=== PATIENT | female | born 1985 | race American Indian/Alaskan Native ===

== ENCOUNTER 2020-02-23 18:07 | Emergency (ER) | payer OTHER ==
[2020-02-23 18:57] LABS: Basophils % (Auto) 0.6 % (0.0-1.8); Eosinophils # (Auto) 0.1 K/mm3 (0.0-0.4); Eosinophils % (Auto) 1.3 % (0.0-4.3); Hematocrit 36.9 % (30.3-42.9); Hemoglobin 12.8 gm/dl (10.1-14.3); Lymphocytes # (Auto) 1.2 K/mm3 (1.2-5.4); Lymphocytes % (Auto) 18.6 % (13.4-35.0); Mean Corpuscular HGB Conc 35 % (30-34); Mean Corpuscular Volume 98 fl (79-97); Monocytes # (Auto) 0.4 K/mm3 (0.0-0.8); Monocytes % (Auto) 6.3 % (0.0-7.3); Platelet Count 196 K/mm3 (140-440); Red Blood Count 3.76 M/mm3 (3.65-5.03); Red Cell Distribution Width 13.4 % (13.2-15.2)
[2020-02-23 19:40] VITALS: BP 108/73
[2020-02-23 20:09] LABS: Alanine Aminotransferase 21 units/L (7-56); Albumin 3.7 g/dL (3.9-5); BUN/Creatinine Ratio 13; Blood Urea Nitrogen 8 mg/dL (7-17); Calcium 9.5 mg/dL (8.4-10.2); Hemolysis Index 18
[2020-02-23 22:28] LABS: Bacteria,Urine 2+ /HPF (Negative); Bilirubin,Urine NEG (Negative); Blood,Urine NEG (Negative); Color,Urine Yellow (Yellow); Mucus,Urine FEW /HPF; Protein,Urine <15 mg/dL mg/dL (Negative); Urobilinogen,Urine < 2.0 mg/dL (<2.0)
--- NOTE | 2020-02-23 23:30 | Ultrasound Report ---
EXAMINATION: Obstetrical Ultrasound INDICATION: Vaginal bleeding and pain COMPARISON: None FINDINGS: There is a single, living intrauterine . [place]-rump length = 8.5 cm = 14 weeks, 3 day(s). heart rate is 161 beats per minute. There is no free pelvic fluid. IMPRESSION: 1. Single living intrauterine with details as above. Signer Name: Pippa Daniels MD Signed: 02/23/2020 11:25 PM Workstation Name: [id number]
--- NOTE | 2020-02-23 23:30 | Ultrasound Report ---
EXAMINATION: Obstetrical Ultrasound INDICATION: Vaginal bleeding and pain COMPARISON: None FINDINGS: There is a single, living intrauterine . [place]-rump length = 8.5 cm = 14 weeks, 3 day(s). heart rate is 161 beats per minute. There is no free pelvic fluid. IMPRESSION: 1. Single living intrauterine with details as above. Signer Name: Pippa Daniels MD Signed: 02/23/2020 11:25 PM Workstation Name: [id number]
[2020-02-24] MEDS ORDERED: ACETAMINOPHEN 325 MG/10.15 ML ORAL LIQD UNIT DOSE PO ONE
[2020-02-24] MEDS ORDERED: ACETAMINOPHEN W/CODEINE 300-30 MG TAB PO ONE
[2020-02-24] MEDS ORDERED: METOCLOPRAMIDE 10 MG TAB PO ONE
--- NOTE | 2020-02-24 00:11 | Emergency Department Report ---
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 Patient states her headache is in the frontal portion and worsens with movement. She reports she has tried Tylenol 1000 mg multiple times without relief of her headache. She denies any history of migraines, vision changes, numbness/tingling/weakness of the limbs, head trauma, confusion, memory loss, or difficulty with speech/ambulation. She does report mild lower abdominal cramping that has now resolved. She is A1. She is currently following with an DIRECTOR IT per patient. Patient also denies any urinary symptoms, vaginal discharge/dys pareunia, nausea/vomiting, stool changes, or fever/chills/sweats. - Related Data Previous Rx's Medication Instructions Recorded Last Taken Type Acetaminophen/Codeine [Tylenol 1 tab PO ONCE PRN #3 tablet 02/24/20 Unknown Rx /Codeine # 3 tab] Metoclopramide [Reglan TAB] 10 mg PO TID PRN #6 tablet 02/24/20 Unknown Rx diphenhydrAMINE [Benadryl CAP] 25 mg PO TID PRN #6 capsule 02/24/20 Unknown Rx Allergies Allergy/AdvReac Type Severity Reaction Status Date / Time metronidazole [From Flagyl] AdvReac Angioedema Verified 02/23/20 18:30 ED Review of Systems ROS: Stated complaint: 14 WKS /3DAYS SPOTTING Other details as noted in HPI Constitutional: denies: chills, diaphoresis, fever, malaise, weakness Eyes: denies: vision change ENT: denies: throat pain Respiratory: denies: cough, shortness of breath Cardiovascular: denies: chest pain Endocrine: denies: excessive sweating Gastrointestinal: as per HPI. denies: nausea, vomiting Genitourinary: denies: urgency, dysuria, frequency, hematuria, discharge, dyspareunia Musculoskeletal: denies: back pain, joint swelling Skin: denies: lesions, change in color Neurological: headache. denies: weakness, numbness, paresthesias, confusion, abnormal gait ED Past Medical Hx - Past Medical History Previous Medical History?: No - Surgical History Past Surgical History?: No - Social History Smoking Status: Never Smoker Substance Use Type: None - Medications Home Medications: Home Medications Medication Instructions Recorded Confirmed Last Taken Type Acetaminophen/Codeine [Tylenol 1 tab PO ONCE PRN #3 tablet 02/24/20 Unknown Rx /Codeine # 3 tab] Metoclopramide [Reglan TAB] 10 mg PO TID PRN #6 tablet 02/24/20 Unknown Rx diphenhydrAMINE [Benadryl CAP] 25 mg PO TID PRN #6 capsule 02/24/20 Unknown Rx ED Physical Exam - General Limitations: No Limitations General appearance: alert, in no apparent distress - Head Head exam: Present: atraumatic, normocephalic - Eye Eye exam: Present: normal appearance, PERRL, EOMI. Absent: scleral icterus - Neck Neck exam: Present: normal inspection, full ROM. Absent: tenderness - Respiratory Respiratory exam: Present: normal lung sounds bilaterally. Absent: respiratory distress - Cardiovascular Cardiovascular Exam: Present: regular rate, normal rhythm, normal heart sounds - GI/Abdominal GI/Abdominal exam: Present: soft, normal bowel sounds. Absent: distended, tenderness, guarding, rebound, rigid - Extremities Exam Extremities exam: Present: full ROM. Absent: other (No swelling/edema noted to upper or lower extremities bilaterally) - Back Exam Back exam: Present: full ROM - Neurological Exam Neurological exam: Present: alert, oriented X3, CN II-XII intact, normal gait. Absent: motor sensory deficit - Psychiatric Psychiatric exam: Present: normal affect, normal mood - Skin Skin exam: Present: warm, dry, intact, normal color. Absent: rash, cyanosis, diaphoretic, pallor, ecchymosis ED Course Vital Signs 02/23/20 18:30 Temperature 98.0 F Pulse Rate 92 H Respiratory 16 Rate Blood Pressure 108/73 O2 Sat by Pulse 97 Oximetry ED Medical Decision Making - Lab Data Result diagrams: 02/23/20 18:44 02/23/20 18:44 Lab Results 02/23/20 02/23/20 02/23/20 Range/Units 18:44 18:44 18:44 WBC 6.7 (4.5-11.0) K/mm3 RBC 3.76 (3.65-5.03) M/mm3 Hgb 12.8 (10.1-14.3) gm/dl Hct 36.9 (30.3-42.9) % MCV 98 H (79-97) fl MCH 34 H (28-32) pg MCHC 35 H (30-34) % RDW 13.4 (13.2-15.2) % Plt Count 196 (140-440) K/mm3 Lymph % (Auto) 18.6 (13.4-35.0) % [place] % (Auto) 6.3 (0.0-7.3) % Eos % (Auto) 1.3 (0.0-4.3) % Baso % (Auto) 0.6 (0.0-1.8) % Lymph # (Auto) 1.2 (1.2-5.4) K/mm3 [place] # (Auto) 0.4 (0.0-0.8) K/mm3 Eos # (Auto) 0.1 (0.0-0.4) K/mm3 Baso # (Auto) 0.0 (0.0-0.1) K/mm3 Seg Neutrophils % 73.2 H (40.0-70.0) % Seg Neutrophils # 4.9 (1.8-7.7) K/mm3 Sodium (137-145) mmol/L Potassium (3.6-5.0) mmol/L Chloride (98-107) mmol/L Carbon Dioxide (22-30) mmol/L Anion Gap mmol/L BUN (7-17) mg/dL Creatinine (0.6-1.2) mg/dL Estimated GFR ml/min BUN/Creatinine Ratio % Glucose (65-100) mg/dL Calcium (8.4-10.2) mg/dL Total Bilirubin (0.1-1.2) mg/dL AST (5-40) units/L ALT (7-56) units/L Alkaline Phosphatase (35-129) units/L Total Protein (6.3-8.2) g/dL Albumin (3.9-5) g/dL Albumin/Globulin Ratio % HCG, Qual Positive (Negative) HCG, Quant 16602 H (0-4) mIU/mL Urine Color (Yellow) Urine Turbidity (Clear) Urine pH (5.0-7.0) Ur Specific [place] (1.003-1.030) Urine Protein (Negative) mg/dL Urine Glucose (UA) (Negative) mg/dL Urine Ketones (Negative) mg/dL Urine Blood (Negative) Urine Nitrite (Negative) Urine Bilirubin (Negative) Urine Urobilinogen (<2.0) mg/dL Ur Leukocyte Esterase (Negative) Urine WBC (Auto) (0.0-6.0) /HPF Urine RBC (Auto) (0.0-6.0) /HPF U Epithel Cells (Auto) (0-13.0) /HPF Urine Bacteria (Auto) (Negative) /HPF Urine Mucus /HPF Blood Type 02/23/20 02/23/20 02/23/20 Range/Units 18:44 18:44 20:59 WBC (4.5-11.0) K/mm3 RBC (3.65-5.03) M/mm3 Hgb (10.1-14.3) gm/dl Hct (30.3-42.9) % MCV (79-97) fl MCH (28-32) pg MCHC (30-34) % RDW (13.2-15.2) % Plt Count (140-440) K/mm3 Lymph % (Auto) (13.4-35.0) % [place] % (Auto) (0.0-7.3) % Eos % (Auto) (0.0-4.3) % Baso % (Auto) (0.0-1.8) % Lymph # (Auto) (1.2-5.4) K/mm3 [place] # (Auto) (0.0-0.8) K/mm3 Eos # (Auto) (0.0-0.4) K/mm3 Baso # (Auto) (0.0-0.1) K/mm3 Seg Neutrophils % (40.0-70.0) % Seg Neutrophils # (1.8-7.7) K/mm3 Sodium 137 (137-145) mmol/L Potassium 3.9 (3.6-5.0) mmol/L Chloride 102.6 (98-107) mmol/L Carbon Dioxide 25 (22-30) mmol/L Anion Gap 13 mmol/L BUN 8 (7-17) mg/dL Creatinine 0.6 (0.6-1.2) mg/dL Estimated GFR > 60 ml/min BUN/Creatinine Ratio 13 % Glucose 93 (65-100) mg/dL Calcium 9.5 (8.4-10.2) mg/dL Total Bilirubin 0.20 (0.1-1.2) mg/dL AST 20 (5-40) units/L ALT 21 (7-56) units/L Alkaline Phosphatase 53 (35-129) units/L Total Protein 6.4 (6.3-8.2) g/dL Albumin 3.7 L (3.9-5) g/dL Albumin/Globulin Ratio 1.4 % HCG, Qual (Negative) HCG, Quant (0-4) mIU/mL Urine Color Yellow (Yellow) Urine Turbidity Clear (Clear) Urine pH 5.0 (5.0-7.0) Ur Specific [place] 1.030 (1.003-1.030) Urine Protein <15 mg/dl (Negative) mg/dL Urine Glucose (UA) Neg (Negative) mg/dL Urine Ketones Neg (Negative) mg/dL Urine Blood Neg (Negative) Urine Nitrite Neg (Negative) Urine Bilirubin Neg (Negative) Urine Urobilinogen < 2.0 (<2.0) mg/dL Ur Leukocyte Esterase Neg (Negative) Urine WBC (Auto) 2.0 (0.0-6.0) /HPF Urine RBC (Auto) 4.0 (0.0-6.0) /HPF U Epithel Cells (Auto) 4.0 (0-13.0) /HPF Urine Bacteria (Auto) 2+ (Negative) /HPF Urine Mucus Few /HPF Blood Type B POSITIVE - Radiology Data Radiology results: report reviewed Ultrasound Report Signed Patient: JOSE ANGEL VELAZQUEZ MR#: [id number] : 1985 Acct:[id number] Age/Sex: 34 / F ADM Date: 02/23/20 Loc: ED Attending Dr: Ordering Physician: DINORA OCHOA Date of Service: 02/23/20 Procedure(s): US OB transvaginal Accession Number(s): [id number] cc: DINORA OCHOA EXAMINATION: Obstetrical Ultrasound INDICATION: Vaginal bleeding and pain COMPARISON: None FINDINGS: There is a single, living intrauterine . [place]-rump length = 8.5 cm = 14 weeks, 3 day(s). heart rate is 161 beats per minute. There is no free pelvic fluid. IMPRESSION: 1. Single living intrauterine with details as above. - Medical Decision Making 34-year-old -Lux[place]bourger female patient presents with complaints of vaginal bleeding during today and headache x3 days. Patient states her headache is in the frontal portion and worsens with movement. She reports she has tried Tylenol 1000 mg multiple times without relief of her headache. She denies any history of migraines, vision changes, numbness/tingling/weakness of the limbs, head trauma, confusion, memory loss, or difficulty with speech /ambulation. She does report mild lower abdominal cramping that has now resolved. She is A1. She is currently following with an DIRECTOR IT per patient. Patient also denies any urinary symptoms, vaginal discharge/dyspareunia, nausea/vomiting, stool changes, or fever/chills/sweats. Neuro exam is normal. No abnormalities noted on physical exam. Ultrasound shows 14-week IUP without any abnormalities. No significant abnormalities noted on CBC, CMP, or UA. Offered patient fluids and IV Reglan and Benadryl for headache treatment-patient declined stating she would like oral medication and to be discharged home. Patient admits to low water intake. Recommend increased water intake to 80 to 100 ounces of water a day. Patient to follow-up with DIRECTOR IT within 3 days. Her vitals are normal, she is well-appearing, she is stable for discharge home. Discussed signs and symptoms that should prompt immediate return to the emergency department in detail with patient who verbalizes understanding. Critical care attestation.: If time is entered above; I have spent that time in minutes in the direct care of this critically ill patient, excluding procedure time. ED Disposition Clinical Impression: Vaginal bleeding during , Headache in Disposition: DC-01 TO HOME OR SELFCARE Is pt being admited?: No Condition: Stable Instructions: Vaginal Bleeding During , Second Trimester, Activity Restriction During , Migraine Headache Additional Instructions: Please follow-up with your DIRECTOR IT within 3 days. Prescriptions: diphenhydrAMINE [Benadryl CAP] 25 mg PO TID PRN #6 capsule PRN Reason: Headache Metoclopramide [Reglan TAB] 10 mg PO TID PRN #6 tablet PRN Reason: Headache Acetaminophen/Codeine [Tylenol /Codeine # 3 tab] 1 tab PO ONCE PRN #3 tablet PRN Reason: Headache Referrals: PRIMARY CARE, [Primary Care Provider] - 3-5 Days
[2020-02-24] MEDS: diphenhydrAMINE 25 MG CAP PO ONE (00:24)
[2020-02-24] MEDS ORDERED: ACETAMINOPHEN 500 MG TAB PO ONE ×2 (00:27)
== END 2020-02-24 00:54 | disposition home or self-care (01) ==
LOC: ED 18:07
DX: O20.9 Hemorrhage in early pregnancy, unspecified (principal); O26.891 Other specified pregnancy related conditions, first trimester; R51.9 Headache, unspecified; Z3A.14 14 weeks gestation of pregnancy; Z79.899 Other long term (current) drug therapy
CPT/HCPCS: 36415; 76810; 76817; 80053; 81001; 84702; 84703; 85025; 86900; 86901